=== PATIENT | female | born 1935 | race Caucasian/White ===

== ENCOUNTER 2018-08-09 10:47 | Day surgery (SDC) | payer OTHER ==
[2018-07-27 10:43] VITALS: BMI 30.9
[2018-08-09] MEDS: CYCLOPENTOLATE HCL 1% OPHTH SOLN 2 ML BOTTLE ONE ×5 (12:05→12:25)
[2018-08-09] MEDS: KETOROLAC TROMETHAMINE 0.5% EYE DROP 1 DROP DROPS ONE ×5 (12:05→12:25)
[2018-08-09] MEDS: GENTAMICIN SULFATE 0.3% OPHTHALMIC (EYE DROPS) 5ML BOTTLE ONE ×5 (12:05→12:25)
[2018-08-09] MEDS: TROPICAMIDE 1% OPHTH SOLN 15 ML BOTTLE ONE ×5 (12:05→12:25)
[2018-08-09] MEDS: PHENYLEPHRINE 2.5% OPHTH SOLN 15 ML BOTTLE ONE ×5 (12:05→12:25)
[2018-08-09 12:08] VITALS: TEMP 97.6
[2018-08-09] MEDS ORDERED: BACITRACIN/POLYMYXIN OPH OINT 3.5 GM TUBE ONE (13:26)
[2018-08-09] MEDS ORDERED: EPI-SHUGARCAINE (EPINEPHRINE 0.025% & LIDOCAINE-PF 0.75%) 4ML ONE (13:26)
[2018-08-09] MEDS ORDERED: BETAXOLOL HCL 0.25% OPHTHALMIC 10 ML DROPSBTL ONE (13:26)
[2018-08-09] MEDS ORDERED: BUPIVACAINE HCL/PF 0.5% (5MG/ML) 10 ML VIAL ONE (13:27)
[2018-08-09] MEDS ORDERED: ACETYLCHOLINE 1:100 INTRA-OCUL 20 MG/2 ML KIT ONE (13:27)
[2018-08-09] MEDS ORDERED: NEO/POLYMYX B SULF/DEXAMETH OPHTHALMIC 5ML BOTTLE ONE (13:27)
[2018-08-09] MEDS ORDERED: ACETAMINOPHEN 325 MG TABLET (FP) PO PRN (13:27)
[2018-08-09] MEDS ORDERED: LIDOCAINE HCL 2% JELLY 10 ML CARTRIDGE ONE (13:27)
[2018-08-09] MEDS ORDERED: LIDOCAINE HCL/PF 2% SDV 5ML VIAL ONE (13:27)
[2018-08-09] MEDS ORDERED: MIDAZOLAM HCL 2 MG/2 ML SINGLE DOSE VIAL ONE (13:53)
[2018-08-09 15:57] VITALS: BP 136/72; PULSE 78
--- NOTE | 2018-08-09 16:52 | OP ---
DATE OF OPERATION: 08/09/2018 TITLE OF THE PROCEDURE: Planned extracapsular cataract extraction, phacoemulsification, insertion of posterior chamber lens implant; right eye. SURGEON: Horacio Brasher MD ANESTHESIA: Local with standby. POULTRY FARMER: Santana De Los Santos DO COMPLICATIONS: None. PREOPERATIVE DIAGNOSIS: Hypermature cataract, right eye. POSTOPERATIVE DIAGNOSIS: Hypermature cataract, right eye. FINDINGS AND PROCEDURE: After successful peribulbar anesthesia was given in the operating room, patient was prepped and draped in the usual manner to expose the right eye. The Tegaderm strips were placed, the speculum inserted, and the microscope brought into position over the right eye. A superior fornix-based flap was then fashioned for 12 mm using Sarah scissors and 0.12 forceps and hemostasis achieved with wet-field cautery. A limbal groove was fashioned for 3 mm with the crescent blade and dissected anterior to clear cornea. A 3-mm blade was used to enter the anterior chamber and then under Viscoat, a 360-degree anterior capsulotomy was performed and the leaflet removed from the eye. Phacoemulsification of the entire nucleus was then done in approximately 2 minutes' time, followed by irrigation and aspiration of all cortical material, leaving an intact posterior capsule and a red reflex present. Provisc was injected into the posterior chamber to deepen the posterior capsule and the implant was inspected carefully with the microscope. Found to be free of defects and free of flaws, it was folded, placed in the Provisc-filled cartridge. The cartridge was placed in the injector and the implant was injected into the eye such that inferior haptic was in the inferior capsular bag and the superior haptic in the superior capsular bag and rotated in the horizontal position with a Sinskey hook. The Provisc was aspirated out, replaced with Miochol and Miostat and BSS. The wounds were closed with a single interrupted 2-0 Ethilon suture and tested for leak and none was found. Conjunctival tenon flap was reapproximated. At this point, the implant was fixated in the capsular bag, centrally located with a round pupil, intact posterior capsule, and a red reflex present. Topical Betoptic S and Maxitrol ophthalmic suspensions were placed, as was polymyxin B-bacitracin ophthalmic ointment, and the Tegaderm strips and the lid speculum removed from the lids. The lids were closed and a patch and shield placed on the eye. The patient was then discharged from the operating room to the recovery room in good condition having tolerated the procedure well. HORACIO BRASHER M.D. [id number]
== END 2018-08-09 15:45 | disposition home or self-care (01) ==
LOC: FASU 10:47
PROVIDERS: ATTEND Ophthalmology
PROC: 08RJ3JZ Replacement of Right Lens with Synthetic Substitute, Percutaneous Approach (ICD-10-PCS; principal; 2018-08-09 14:07)
DX: H25.21 Age-related cataract, morgagnian type, right eye (principal)

== ENCOUNTER 2018-10-25 10:19 | Day surgery (SDC) | payer OTHER ==
[2018-10-18 14:04] VITALS: BMI 30.9
[~2018-10-25 10:19] MED LIST: OFLOXACIN 0.3% OPHTHALMIC SOLUTION 5 ML BOTTLE OS SCH
[2018-10-25] MEDS ORDERED: KETOROLAC TROMETHAMINE 0.5% EYE DROP 1 DROP DROPS ONE (10:51)
[2018-10-25] MEDS ORDERED: PHENYLEPHRINE 2.5% OPHTH SOLN 15 ML BOTTLE ONE (10:51)
[2018-10-25] MEDS ORDERED: TROPICAMIDE 1% OPHTH SOLN 15 ML BOTTLE ONE (10:51)
[2018-10-25] MEDS ORDERED: CYCLOPENTOLATE HCL 1% OPHTH SOLN 2 ML BOTTLE ONE (10:51)
[2018-10-25] MEDS: KETOROLAC TROMETHAMINE 0.5% EYE DROP 1 DROP DROPS OS SCH ×5 (11:20→11:40)
[2018-10-25] MEDS: TROPICAMIDE 1% OPHTH SOLN 15 ML BOTTLE OS SCH ×5 (11:20→11:40)
[2018-10-25] MEDS: GENTAMICIN SULFATE 0.3% OPHTHALMIC (EYE DROPS) 5ML BOTTLE ONE ×5 (11:20→11:40)
[2018-10-25] MEDS: PHENYLEPHRINE 2.5% OPHTH SOLN 15 ML BOTTLE OS SCH ×5 (11:20→11:40)
[2018-10-25] MEDS: CYCLOPENTOLATE HCL 1% OPHTH SOLN 2 ML BOTTLE OS SCH ×5 (11:20→11:40)
[2018-10-25] MEDS ORDERED: EPI-SHUGARCAINE (EPINEPHRINE 0.025% & LIDOCAINE-PF 0.75%) 4ML ONE (12:24)
[2018-10-25] MEDS ORDERED: ACETYLCHOLINE 1:100 INTRA-OCUL 20 MG/2 ML KIT ONE (12:25)
[2018-10-25] MEDS ORDERED: POVIDONE-IODINE 5% OPHTHALMIC PREP 30 ML SOLUTION ONE (12:25)
[2018-10-25] MEDS ORDERED: ACETAMINOPHEN 325 MG TABLET (FP) PO PRN (12:28)
[2018-10-25] MEDS ORDERED: MIDAZOLAM HCL 2 MG/2 ML SINGLE DOSE VIAL ONE (13:03)
[2018-10-25] MEDS ORDERED: ONDANSETRON 4 MG/2 ML VIAL IVPUSH PRN (13:06)
[2018-10-25] MEDS ORDERED: PROPOFOL 20 ML ONE (13:10)
[2018-10-25] MEDS ORDERED: LACTATED RINGERS SOLUTION 1,000 ML IV SCH (13:15)
[2018-10-25 14:24] VITALS: TEMP 98.4
[2018-10-25 14:52] VITALS: BP 138/82; PULSE 81
--- NOTE | 2018-10-26 07:12 | OP ---
DATE OF OPERATION: 10/25/2018 PREOPERATIVE DIAGNOSIS: Cataract, left eye. POSTOPERATIVE DIAGNOSIS: Cataract, left eye. PROCEDURE: Cataract extraction via phacoemulsification with insertion of posterior chamber lens implant, left eye, Toric lens. SURGEON: Mona Brasher MD [employer] ADMINISTRATOR: Mona Brasher MD ANESTHESIA: Topical with sedation. ESTIMATED BLOOD LOSS: Less than 1 mL. COMPLICATIONS: None. SPECIMENS: None. DESCRIPTION OF PROCEDURE: The patient was identified in the holding area. After all risks, benefits, and alternatives were explained to the patient, informed consent was obtained. The left eye was marked with a marking pen. The patient then entered the operating room on an eye stretcher. After a formal time-out was performed, topical tetracaine eye drops were instilled onto the left eye. The patient was then instructed to sit up and to look straight ahead, and the left eye was marked for the cardinal axes of astigmatism using a Toric Bubble Marker and a Toric marking pen. The patient was then instructed to lie back down, and the left eye was then prepped and draped in the usual sterile fashion. An eyelid speculum was placed beneath the eyelids of the left eye. Then, the axis of astigmatism was marked onto the cornea using a Toric marking pen and a Toric dial, and it was between 170 and 175 degrees. Once that was finished, then, an inferotemporal paracentesis incision was created using a 15-degree blade, and topical preservative-free epinephrine and preservative-free lidocaine were injected into the anterior chamber. Viscoelastic was then injected into the anterior chamber. A 2.4-mm keratome blade was then used to make a superotemporal incision. A 360-degree continuous curvilinear capsulorrhexis was then created using bent cystotome and Utrata forceps. Hydrodissection was performed using balanced saline solution on a cannula. Phacoemulsification was introduced to disassemble and remove the nucleus in its entirety. Irrigation/aspiration was then used to remove any remaining cortical material from the eye. Capsular bag was reformed using viscoelastic. An Erik model [id number] with a power of 24.0 diopters, serial number [id number], was inspected and found to be defect-free and injected into the capsular bag. Irrigation/aspiration was then used to remove any remaining viscoelastic from the eye. The anterior chamber was reformed using balanced saline solution. Then, the optic of the IOL was rotated, so that the axis of astigmatism on the optic matched the axis of astigmatism on the cornea, which was in between 170 and 175 degrees. Then, intracameral injection of Miochol was then administered, and the pupil came down and was round. All wounds were hydrated with balanced saline solution, and an interrupted 10-0 nylon suture was then placed at the superotemporal wound with the knot buried. There was no leakage observed, and the anterior chamber was deep. There was a red reflex present, the eye had a adequate pressure, and the lens was perfectly centered on the capsular bag with the axis of astigmatism between 170 and 175 degrees. Topical antibiotic eye drops and ointment were then administered to the left eye. The eyelid speculum was removed from the left eye. The left eye was shielded. The patient tolerated the procedure well and left the operating room in stable condition to follow up in the eye clinic tomorrow morning at 10:00. MONA BRASHER M.D. [id number]
== END 2018-10-25 14:55 | disposition home or self-care (01) ==
LOC: FASU 10:19
PROVIDERS: ATTEND Ophthalmology
PROC: 08RK3JZ Replacement of Left Lens with Synthetic Substitute, Percutaneous Approach (ICD-10-PCS; principal; 2018-10-25 13:19)
DX: H26.9 Unspecified cataract (principal)